=== PATIENT | female | born 1970 | race Caucasian/White ===

== ENCOUNTER 2021-06-04 13:33 | Outpatient (REF) | payer OTHER, SELFPAY ==
--- NOTE | ~2021-06-04 | XR_ITS ---
EXAMINATION: XR CERVICAL SPINE CLINICAL INFORMATION: Cervical spondylosis with radiculopathy COMPARISON: None TECHNIQUE: 5 views of the cervical spine were obtained. FINDINGS: No abnormal prevertebral soft tissue swelling is seen. The bony texture and alignment is satisfactory. Disc spaces are maintained. No foraminal unremarkable. XR/XR cervical spine min 6V IMPRESSION: No significant bony abnormality of the cervical spine identified.
== END 2021-06-04 13:34 | disposition home or self-care (01) ==
LOC: HO.XRAY 13:33
PROVIDERS: PCP Internal Medicine; Visit Provider Psychiatry & Neurology Neurology
DX: M47.22 Other spondylosis with radiculopathy, cervical region (principal)
CPT/HCPCS: 72052